=== PATIENT | female | born 1950 | race Caucasian/White ===

== ENCOUNTER → 2022-02-17 | Outpatient (CLI) | payer MEDICARE ==
[~2022-02-17] MED LIST: LYRICA75 MG PO; MACROBID 100 M100 M1 PO; NORCO 10-325 T1 EACH PO; PREMARIN1.25 MG PO; SULFAMETHOXAZO1 EACH PO; TRICOR145 MG PO; XANAX1 MG PO; ZANAFLEX4 MG PO; ZOLOFT50 MG PO; ZYPREXA5 MG PO
== END ==
LOC: RAD 10:32
DX: M54.16 Radiculopathy, lumbar region (principal); M43.17 Spondylolisthesis, lumbosacral region; M47.817 Spondylosis without myelopathy or radiculopathy, lumbosacral region; M48.07 Spinal stenosis, lumbosacral region
CPT/HCPCS: 72100